=== PATIENT | female | born 1945 | race Caucasian/White ===

== ENCOUNTER 2018-10-13 22:48 | Emergency (ER) | payer MEDICARE ==
[~2018-10-13] VITALS: Ht 160 cm; Wt 60.3 kg
[~2018-10-13 22:48] MED LIST: ASPI-807 PO
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
--- NOTE | 2018-10-13 23:44 | NUR ---
IV LINE OBTAINED ON RFA 20G. BLOOD DRAWN AND GIVEN TO HAIR BOILER AT BEDSIDE. EKG AT BEDSIDE WELL.
[2018-10-13 23:47] LABS: BASOPHILS # (AUTO) 0.1 /CMM (0.0-0.2); BASOPHILS % (AUTO) 0.7 % (0.0-2.0); HEMATOCRIT 36 % (33-45); HEMOGLOBIN 12.4 g/dL (11.5-14.8); LYMPHOCYTES # (AUTO) 2.2 /CMM (0.8-4.8); LYMPHOCYTES % (AUTO) 29.3 % (20.0-44.0); MEAN CORPUSCULAR HGB CONC 35 g/dl (31.0-36.0); MEAN CORPUSCULAR VOLUME 89 fL (82-100); MONOCYTES # (AUTO) 0.5 /CMM (0.1-1.30); MONOCYTES % (AUTO) 6.7 % (2.0-12.0); NEUTROPHILS # (AUTO) 4.7 /CMM (1.8-8.9); NEUTROPHILS % (AUTO) 61.3 % (43.0-81.0); PLATELET COUNT (AUTO) 283 /CMM (150-450); RED BLOOD CELL COUNT(AUTO) 4.04 MIL/uL (4.0-5.2); WHITE BLOOD COUNT (AUTO) 7.6 K/uL (4.3-11.0)
[2018-10-13 23:54] LABS: CALCIUM, SERUM 8.9 mg/dL (8.5-10.1); CARBON DIOXIDE 23 mmol/L (21-32); CHLORIDE 106 mmol/L (98-107); CREATININE 0.8 mg/dL (0.6-1.3); GLUCOSE 101 mg/dL (74-106); POTASSIUM 3.5 mmol/L (3.5-5.1); SODIUM SERUM 141 mmol/L (136-145); UREA NITROGEN, BLOOD 19 mg/dL (7-18)
[2018-10-14 00:21] VITALS: BP 136/78
--- NOTE | 2018-10-14 00:21 | NUR ---
IV removed. Catheter intact and site benign. Pressure and 4x4 applied to site. No bleeding noted.
--- NOTE | 2018-10-14 00:36 | NUR ---
Patient discharged to home in stable condition. Written and verbal after care instructions given. Patient verbalizes understanding of instruction. Pt ambulatory with a steady gait
== END 2018-10-14 00:38 | disposition home or self-care (01) ==
LOC: ER 22:52
DX: R07.89 Other chest pain (principal); I10 Essential (primary) hypertension; Z90.49 Acquired absence of other specified parts of digestive tract; Z60.2 Problems related to living alone; Z87.891 Personal history of nicotine dependence; Z79.82 Long term (current) use of aspirin
CPT/HCPCS: 36415; 71045-TC; 80048-TC; 84484-TC; 85025-TC

== ENCOUNTER 2020-06-11 18:26 | Inpatient (IN) | payer MEDICARE ==
[~2020-06-11] VITALS: Ht 160 cm; Wt 56.2 kg
--- NOTE | 2020-06-11 18:26 | NUR ---
PT BIB SELF C/O DULL CHEST PAIN FOR 1 WEEK AND DIZZINESS THIS MORNING. PT IS AAOX4, NOT IN RESPIRATORY DISTRESS, HOOKED TO GROUNDSKEEPING MAINTENANCE WORKER, KEPT RESTED AND COMFORTABLE. WILL CONTINUE TO MONITOR.
--- NOTE | 2020-06-11 18:33 | NUR ---
CANDIE CHRISTIANSON AT BEDSIDE FOR EKG.
--- NOTE | 2020-06-11 18:38 | NUR ---
SEEN AND EXAMINED BY .
--- NOTE | 2020-06-11 19:05 | NUR ---
REC'D REPORT FROM FERNANDO VILLALTA RN FOR GEORGE
--- NOTE | 2020-06-11 19:18 | NUR ---
[facility] CALLED WHEEL [facility]TER PAGED.
[2020-06-11 19:27] LABS: CALCIUM, SERUM 9.2 mg/dL (8.5-10.1); CARBON DIOXIDE 27 mmol/L (21-32); CHLORIDE 103 mmol/L (98-107); CREATININE 0.9 mg/dL (0.6-1.3); GLUCOSE 156 mg/dL (74-106); POTASSIUM 3.5 mmol/L (3.5-5.1); SODIUM SERUM 139 mmol/L (136-145); UREA NITROGEN, BLOOD 22 mg/dL (7-18)
[2020-06-11 19:42] LABS: B-TYPE NATRIURETIC PEPTIDE 157 PG/ML (0-125)
[2020-06-11 19:47] LABS: BASOPHILS % (AUTO) 0.7 % (0.0-2.0); EOSINOPHILS % (AUTO) 2.6 % (0.0-6.0); HEMATOCRIT 35 % (33-45); HEMOGLOBIN 12.1 g/dL (11.5-14.8); LYMPHOCYTES % (AUTO) 32.6 % (20.0-44.0); MEAN CORPUSCULAR HGB CONC 34 g/dl (31.0-36.0); MEAN CORPUSCULAR VOLUME 88 fL (82-100); MONOCYTES # (AUTO) 0.6 /CMM (0.1-1.30); MONOCYTES % (AUTO) 8.9 % (2.0-12.0); NEUTROPHILS # (AUTO) 3.4 /CMM (1.8-8.9); NEUTROPHILS % (AUTO) 55.2 % (43.0-81.0); PLATELET COUNT (AUTO) 304 /CMM (150-450); RED BLOOD CELL COUNT(AUTO) 4.01 MIL/uL (4.0-5.2); WHITE BLOOD COUNT (AUTO) 6.2 K/uL (4.3-11.0)
--- NOTE | 2020-06-11 20:28 | NUR ---
LAB CALLED REGARDING POSITIVE COVID RESULT.
[2020-06-11] MEDS ORDERED: MORPHINE SULFATE INJ 4 MG/ML DISP.SYRIN ONE (20:40)
[2020-06-11] MEDS ORDERED: ONDANSETRON HCL/PF 4 MG/2 ML VIAL ONE (20:40)
[2020-06-11] MEDS ORDERED: ACETAMINOPHEN 325 MG TABLET PO PRN (21:00)
[2020-06-11] MEDS ORDERED: ONDANSETRON HCL/PF 4 MG/2 ML VIAL IVP ONE (21:00)
[2020-06-11] MEDS ORDERED: MORPHINE SULFATE INJ 2 MG/ML DISP.SYRIN IV ONE (21:00)
[2020-06-11] MEDS ORDERED: Z GUARD REMEDY 2 OZ OINT TP PRN (21:00)
[2020-06-11] MEDS ORDERED: MAG HYDROX/AL HYDROX/SIMETH 30 ML UDC PO PRN (21:00)
[2020-06-11] MEDS ORDERED: MAGNESIUM HYDROXIDE 30 ML UDC PO PRN (21:00)
[2020-06-11] MEDS ORDERED: ONDANSETRON HCL/PF 4 MG/2 ML VIAL IVP PRN (21:00)
--- NOTE | 2020-06-11 21:00 | NUR ---
gave report to UBALDO Kraft for ahmet
[2020-06-11 21:40] VITALS: BP 175/74
[2020-06-11] MEDS: HYDROCODONE/APAP 5/325MG TABLET PO PRN (22:03)
[2020-06-11] MEDS: ZOLPIDEM TARTRATE 5 MG TABLET PO PRN (23:10)
[2020-06-12] VITALS: BP 128/80
[2020-06-12 04:00] VITALS: BP 131/69
[2020-06-12 06:45] LABS: BASOPHILS # (AUTO) 0.1 /CMM (0.0-0.2); BASOPHILS % (AUTO) 1.3 % (0.0-2.0); EOSINOPHILS % (AUTO) 3.5 % (0.0-6.0); HEMATOCRIT 36 % (33-45); HEMOGLOBIN 11.8 g/dL (11.5-14.8); LYMPHOCYTES # (AUTO) 2.8 /CMM (0.8-4.8); LYMPHOCYTES % (AUTO) 43.5 % (20.0-44.0); MEAN CORPUSCULAR HGB CONC 33 g/dl (31.0-36.0); MEAN CORPUSCULAR VOLUME 91 fL (82-100); MONOCYTES # (AUTO) 0.6 /CMM (0.1-1.30); MONOCYTES % (AUTO) 9.4 % (2.0-12.0); NEUTROPHILS # (AUTO) 2.7 /CMM (1.8-8.9); NEUTROPHILS % (AUTO) 42.3 % (43.0-81.0); PLATELET COUNT (AUTO) 207 /CMM (150-450); RED BLOOD CELL COUNT(AUTO) 3.93 MIL/uL (4.0-5.2); WHITE BLOOD COUNT (AUTO) 6.4 K/uL (4.3-11.0)
--- NOTE | 2020-06-12 07:11 | NUR ---
RN notes Admitted a 74 year female via stretcher from ER with complaints of chest pain radiating to axilla. History of Cardiac disorder, Gerd, CAD. Alert and oriented. Verbally able to communicate needs. Ambulatory. Very anxious and complaining of chest pain 8/10, gave norco and ambien. Patient relaxes and said that the pain is now only 2/10. Vital signs taken, WNL. Kept clean and dry. Will endorse to next shift for continuity of care.
--- NOTE | 2020-06-12 07:20 | NUR ---
RN OPENING NOTE PATIENT RECEIVED AWAKE IN BED RESTING IN SEMI-FOWLERS POSITION. PATIENT IS ON O2 THERAPY VIA NC AT 2 LPM, TOLERATING WELL. NO COMPLAINTS OF SOB OR CHEST PAIN. SAFETY PRECAUTIONS IMPLEMENTED, BED LOCKED IN LOWEST POSITION, SIDE RAILS UP X2, CALL LIGHT WITHIN REACH. ISOLATION PRECAUTIONS MAINTAINED. WILL CONTINUE TO MONITOR AND PROVIDE CARE THROUGHOUT SHIFT.
[2020-06-12 07:27] LABS: CALCIUM, SERUM 9.1 mg/dL (8.5-10.1); CARBON DIOXIDE 23 mmol/L (21-32); CHLORIDE 104 mmol/L (98-107); CREATININE 0.7 mg/dL (0.6-1.3); GLUCOSE 73 mg/dL (74-106); MAGNESIUM 2.1 mg/dL (1.8-2.4); PHOSPHORUS 4.9 mg/dL (2.5-4.9); SODIUM SERUM 138 mmol/L (136-145); UREA NITROGEN, BLOOD 21 mg/dL (7-18)
[2020-06-12 08:00] VITALS: BP 142/82
[2020-06-12 08:42] LABS: CHOLESTEROL 143 mg/dL (<200); HDL CHOLESTEROL 68 mg/dL (40-60); LDL 58 mg/dL (0-99); TRIGLYCERIDES 76 mg/dL (30-150)
--- NOTE | 2020-06-12 09:14 | NUR ---
c/o chest pain b/p was 142/82 Nr.Luke was notified will continue to assess and evaluate
[2020-06-12] MEDS: ASPIRIN 81 MG TAB.CHEW PO SCH (09:16)
[2020-06-12] MEDS: HYDROCODONE/APAP 5/325MG TABLET PO PRN ×2 (09:17→17:27)
[2020-06-12] MEDS ORDERED: MULT-447 PO (09:21)
[2020-06-12] MEDS ORDERED: CALC500T52 PO (09:21)
[2020-06-12] MEDS ORDERED: VIT1CAPS9 PO (09:21)
[2020-06-12] MEDS ORDERED: LISI40TA13 PO (09:21)
[2020-06-12] MEDS ORDERED: CARV25TA2 PO (09:21)
[2020-06-12] MEDS ORDERED: ATOR40TA PO (09:21)
[2020-06-12] MEDS: PANTOPRAZOLE 40 MG TABLET.DR PO SCH (11:12)
[2020-06-12] MEDS: LISINOPRIL (20MG) 20 MG TABLET PO SCH ×2 (11:13→17:00)
[2020-06-12 12:00] VITALS: BP 133/72
[2020-06-12 16:00] VITALS: BP_SYST 104; BP_DIAS 53; BP_DIAS 55
--- NOTE | 2020-06-12 19:00 | NUR ---
RN OPENING NOTE RECEIVED PATIENT IN BED RESTING ALERT ORIENTED X4 VERBALLY RESPONSIVE,ABLE TO MAKE NEEDS KNOWN,ON 2L OXYGEN VIA NASAL CANNULA, O2:98% IV SITE IS ON RIGHT AC INTACT PATENT,AMBULATORY CONTINENT TO BOWEL/BLADDER,CALL LIGHT WITHIN REACH,BED IN LOW POSITION AND LOCKED,SAFETY MEASURE IMPLEMENT CONTINUE TO MONITOR.
--- NOTE | 2020-06-12 19:08 | NUR ---
RN CLOSING NOTE PATIENT AWAKE IN BED RESTING IN SEMI-FOWLERS POSITION. PATIENT IS ON O2 THERAPY VIA NC AT 2 LPM, TOLERATING WELL. NO COMPLAINTS OF SOB OR CHEST PAIN. SAFETY PRECAUTIONS IMPLEMENTED, BED LOCKED IN LOWEST POSITION, SIDE RAILS UP X2, CALL LIGHT WITHIN REACH. ISOLATION PRECAUTIONS MAINTAINED. WILL ENDORSE CARE TO UPCOMING SHIFT.
[2020-06-12 20:00] VITALS: BP 146/77
[2020-06-12] MEDS ORDERED: ATORVASTATIN 40 MG TABLET PO SCH (22:00)
[2020-06-12] MEDS: ZOLPIDEM TARTRATE 5 MG TABLET PO PRN (22:19)
[2020-06-13] VITALS: BP 117/62
[2020-06-13 04:00] VITALS: BP 138/60
--- NOTE | 2020-06-13 06:39 | NUR ---
RN CLOSING NOTE PATIENT REMAINS ON ALERT ORIENTEDX4 VERBALLY RESPONSIVE ON 2L OXYGEN VIA NASAL CANNULA O2:98%,AMBULATORY,CONTINENT TO BOWEL/BLADDER, NO SOB NOT ACUTE DISTRESS NOTED,ALL DUE MEDS GIVEN MD ORDERED,KEPT CLEAN AND DRY ALL THE TIME,IMPLEMENTED SAFETY MEASURE,KEPT CALL LIGHT WITHIN REACH,ALL NEEDS MET ENDORSE NEXT COMING SHIFT FOR CONTINUATION OF CARE.
--- NOTE | 2020-06-13 07:30 | NUR ---
PROCEDURE RN AM NOTES PATIENT IN BED, AAO X 4, ON 2L O2, NO SOB, RESPIRATION UNLABORED, SINUS RHYTHM ON MONITOR, DENIES CHEST PAIN OR DISCOMFORT, RAC G 18 IV ACCESS FLUSHES WELL, SITE CLEAR, AMBULATORY, NO SKIN ISSUES, ON CARDIAC DIET, POC DISCUSSED, VERBALIZED UNDERSTANDING, SAFETY PRECAUTIONS IMPLEMENTED, BED LOCKED IN LOWEST POSITION, SIDE RAILS UP X2, CALL LIGHT WITHIN REACH. WILL CONTINUE TO MONITOR AND PROVIDE CARE THROUGHOUT SHIFT.
[2020-06-13 08:00] VITALS: BP 126/62
[2020-06-13] MEDS: PANTOPRAZOLE 40 MG TABLET.DR PO SCH (08:03)
[2020-06-13] MEDS: LISINOPRIL (20MG) 20 MG TABLET PO SCH ×2 (08:07→16:36)
[2020-06-13] MEDS: ASPIRIN 81 MG TAB.CHEW PO SCH (08:07)
[2020-06-13] MEDS ORDERED: NITROGLYCERIN 0.4 MG/TAB BOTTLE SL ONE (08:30)
[2020-06-13] MEDS ORDERED: IOHEXOL-350 100 ML VIAL IV ONE (08:58)
[2020-06-13] MEDS ORDERED: NITROGLYCERIN 0.4 MG/TAB BOTTLE ONE (08:58)
[2020-06-13] MEDS ORDERED: IV NS 0.9% 250 ML IV ONE (08:59)
[2020-06-13] MEDS ORDERED: METOPROLOL TARTRATE INJ 5 MG/5 ML AMPUL ONE ×2 (08:59→09:26)
[2020-06-13] MEDS ORDERED: CT SWABBABLE VALVE TRANS SET 1 EA INFUS.SET MC ONE (08:59)
[2020-06-13] MEDS: METOPROLOL TARTRATE INJ 5 MG/5 ML AMPUL IVP PRN ×4 (09:17→09:32)
--- NOTE | 2020-06-13 09:30 | NUR ---
RN NOTES DUE MEDS GIVEN
[2020-06-13] MEDS ORDERED: MULTIVITAMIN/LUTEIN/MINERALS 1 TAB PO SCH (09:43)
--- NOTE | 2020-06-13 09:47 | NUR ---
RN NOTES; Post CTA: Patient able to tolerate the procedure no distress noted at this time.
[2020-06-13] MEDS: CALCIUM CARBONATE (1250) 500 MG TABLET PO SCH ×2 (10:16→16:26)
[2020-06-13] MEDS: HYDROCODONE/APAP 5/325MG TABLET PO PRN (11:30)
--- NOTE | 2020-06-13 11:38 | NUR ---
MS RN NOTES PATIENT C/O /10 LEFT SIDED CHEST PAIN POKING. EKG DONE. NORMAL SINUS RHYTHM RELAYED TO DR. BLANCA LINDQUIST. NORCO 5 GIVEN
[2020-06-13] MEDS ORDERED: HYDR-4275 PO (15:59)
[2020-06-13] MEDS ORDERED: ZOLP5TAB2 PO (15:59)
[2020-06-13 16:00] VITALS: BP 143/82
[2020-06-13 16:36] VITALS: BP 143/82
--- NOTE | 2020-06-13 16:53 | NUR ---
RESEARCH RN SPEC NOTES PATIENT DISCHARGED TO HOME TODAY PER MD IN STABLE CONDITION. PROVIDED DC INSTRUCTIONS, MED RECON /PRESCRIPTION LIST AND HEALTH TEACHINGS. PATIENT TO FOLLOW UP WITH PCP IN 1 WEEK AND WILL MAKE OWN APPOINTMENT. IV ACCESS TO RT AC REMOVED, CATH TIP COMPLETE, APPLIED PRESSURE, NO BLEEDING, DRESSING IN PLACE. ALL BELONGINGS CHECKED AND RETURNED. ALL PAPERWORKS SIGNED. VERBALIZED UNDERSTANDING TO ALL INSTRUCTIONS GIVEN. AMBULATED AND ACCOMPANIED BY SOON CHARGE NURSE TO LOBBY AND WILL GO HOME VIA PRIVATE CAR BY FAMILY.
[2020-06-14] MEDS ORDERED: MULTIVIT W/MINERALS 1 TAB TABLET PO SCH (09:00)
[2020-06-14] MEDS ORDERED: ATORVASTATIN 40 MG TABLET PO SCH (09:00)
--- NOTE | 2020-06-16 15:09 | NUR ---
LAB CALLED IN STATED THAT JUSTIN KEVIN POSITIVE LEFT MESSAGE TO [facility] [phone] WAITING FOR RETURNING CALL BACK Addendum: 06/16/20 at 1512 by DOUG SOLOMON RN WRONG PATIENT
== END 2020-06-13 17:00 | disposition home or self-care (01) | DRG 205 ==
LOC: ER 18:31 → TELE1 20:53 → MEDSG1 06-13 08:18
PROVIDERS: ADMIT Family Medicine; ATTEND Nurse Practitioner Acute Care
DX: M94.0 Chondrocostal junction syndrome [Tietze] (principal); N17.0 Acute kidney failure with tubular necrosis; I13.0 Hypertensive heart and chronic kidney disease with heart failure and stage 1 through stage 4 chronic kidney disease, or unspecified chronic kidney disease; I50.9 Heart failure, unspecified; E78.5 Hyperlipidemia, unspecified; K21.9 Gastro-esophageal reflux disease without esophagitis; I16.0 Hypertensive urgency; F41.9 Anxiety disorder, unspecified; Z82.49 Family history of ischemic heart disease and other diseases of the circulatory system; Z90.49 Acquired absence of other specified parts of digestive tract; Z79.82 Long term (current) use of aspirin; R73.9 Hyperglycemia, unspecified; I34.1 Nonrheumatic mitral (valve) prolapse
CPT/HCPCS: 36415; 71045-TC; 75574; 80048-TC; 80061-TC; 83735-TC; 83880; 84100-TC; 84443-TC; 84484-TC; 85025-TC; 87081-TC; 93308-TC; C9803; G0378; J2270; J2405; J3490; J7050; Q9967; U0003